=== PATIENT | male | born 1980 | race Caucasian/White ===

== ENCOUNTER 2017-08-02 19:29 | Emergency (ER) | payer BC ==
[2017-08-02] MEDS ORDERED: DOXYCYCLINE HYCLATE 100 MG CAPSULE PO ONE (19:50)
[2017-08-02] MEDS ORDERED: PREDNISONE 20 MG TAB PO ONE (19:50)
--- NOTE | 2017-08-02 19:58 | Emergency Department Record ---
History of Present Illness - General Chief complaint: Rash Stated complaint: RASH Source: Patient, Family Mode of Arrival: Ambulatory Limitations: No limitations - History of Present Illness Initial comments: 37 yo male presents with an itchy rash that started on the left hand. The rash started last Friday. The only symptoms he has had is itching. NO fevers, headache, sore throat, nausea, vomiting or any other symptoms. The rash has spread to the PATRICE and the RUE. No pain. He is returning from a vacation in [place]. No bites that were known to have occurred. No ticks that he saw. No swollen glands. The rash remains on the arms and across the upper back only. He does not feel ill at all. His main concerns are the itching and the left hand is a bit swollen. MD complaint: Rash -: Days(s) (6) Location: LUE, RUE Quality: Other (Itches) Consistency: Constant Improves with: None Worsens with: None Context: Other (Travel to [place]) Associated symptoms: Denies other symptoms Treatments Prior to Arrival: None - Related Data Home Medications Medication Instructions Recorded Confirmed Last Taken Lansoprazole [Prevacid] 30 mg PO BID 08/02/17 08/02/17 Unknown Venlafaxine HCl [Effexor] 75 mg PO DAILY 08/02/17 08/02/17 Unknown Previous Rx's Medication Instructions Recorded Doxycycline Hyclate [Doxycycline] 100 mg PO BID #14 cap 08/02/17 Prednisone [Prednisone 20Mg] 20 mg PO BID #14 tab 08/02/17 Allergies Allergy/AdvReac Type Severity Reaction Status Date / Time No Known Drug Allergies Allergy Verified 08/02/17 19:55 Review of Systems Constitutional: Denies: Chills, Fever, Malaise, Night sweats, Weakness Eyes: Denies: Eye discharge, Eye pain, Photophobia, Vision change ENT: Denies: Congestion, Ear pain, Epistaxis, Throat pain Respiratory: Denies: Dyspnea, Hemoptysis, Stridor, Wheezes Cardiovascular: Denies: Chest pain, Edema, Palpitations, Syncope Endocrine: Denies: Fatigue, Polydipsia, Polyuria Gastrointestinal: Denies: Abdominal pain, Diarrhea, Hematemesis, Hematochezia, Melena, Nausea, Vomiting Genitourinary: Denies: Dysuria Musculoskeletal: Reports: Joint swelling (left hand). Denies: Arthralgia, Back pain, Myalgia, Neck pain Skin: Reports: As per HPI, Change in color, Rash Neurological: Denies: Confusion, Headache, Numbness, Tingling, Tremors, Weakness Psychiatric: Denies: Anxiety Hematological/Lymphatic: Denies: Anemia, Blood Clots, Easy bleeding, Easy bruising, Swollen glands Physical Exam - General General Appearance: Alert, Oriented x3, Cooperative, No acute distress Limitations: No limitations - Head Head exam: Atraumatic, Normocephalic, Normal inspection Head exam detail: Other. negative: Abrasion, Contusion, Hematoma, Laceration - Eye Eye exam: Normal appearance, PERRL, EOMI. negative: Conjunctival injection, Periorbital swelling, Scleral icterus - ENT ENT exam: Mucous membranes moist, Normal orophraynx, Other (NO oral lesions) Ear exam: Normal external inspection Nasal Exam: Normal inspection Mouth exam: Normal external inspection Teeth exam: Normal inspection Throat exam: Normal inspection. negative: Tonsillar erythema, Tonsillomegaly, Tonsillar exudate, R peritonsillar mass, L peritonsillar mass - Neck Neck exam: Normal inspection, Full ROM. negative: Lymphadenopathy, Tenderness - Respiratory Respiratory exam: Normal lung sounds bilaterally. negative: Respiratory distress - Cardiovascular Cardiovascular Exam: Regular rate, Normal rhythm, Normal heart sounds - GI/Abdominal GI/Abdominal exam: Soft. negative: Tenderness - Rectal Rectal exam: Deferred - exam: Deferred - Extremities Extremities exam: Full ROM, Normal capillary refill, Other (The distribution of the rash is on both upper extremities from the hands, uuper arms, across the chest). negative: Normal inspection Image of Full Body: 1 - mild dorsal hand swelling, soft, not warm - Back Back exam: Denies: CVA tenderness (R), CVA tenderness (L), Full ROM - Neurological Neurological exam: Alert, Oriented X3. negative: Altered - Psychiatric Psychiatric exam: Normal affect, Normal mood - Skin Skin exam: Dry, Erythema, Intact (No weeping), Rash. negative: Cyanosis, Diaphoretic, Mottled, Normal color, Vesicles, Warm Type of lesion: negative: Abscess Distribution of rash: Back, RUE, LUE Description of rash: Other (The rash consists of papular lesions about 5mm to 10mm with 2-4 mm of light encircling faint erythema, some have a non blanching bruise appearance, no weeping, non confluent, no vesicles) Course Vital Signs 08/02/17 19:40 Temperature 98.3 F Pulse Rate [ 105 H Pulse Ox Probe] Respiratory 20 Rate Blood Pressure 131/84 [Left Arm] Pulse Ox 98 - Reevaluation(s) Reevaluation #1: The patient is well appearing. He does appear ill and has NOT been ill. His only symptoms is itching. He does not have any of the symptoms of an acute infectious process with NO headache, nausea, diarrhea, swollen glands, headache or fever. I did recommend treatment and swell as labs at this point in time. 08/02/17 20:24 08/02/17 20:41 The labs were reviewed The CBC was in the normal range without acute changes The Glucose was 147 non fasting The CRP was mildly elevated at 2.0 The lyme and rickettsial studies are send outs I explained that the origin of the rash is not completely clear. He is not sick or ill. His only symptom is itching. I recommended a course of Doxycycline until the lyme and rickettsial labs return. I explained that he must go to the hospital immediately if any symptoms occur to suggest infection or any systemic symptoms. He is to call his PCP Friday to be seen. He may need dermatology follow up if not improving. 08/02/17 21:53 Medical Decision Making - Lab Data Result diagrams: 08/02/17 20:14 08/02/17 20:14 Disposition Disposition: Discharge Clinical Impression: Rash Disposition: Home, Self-Care Condition: (1) Good Instructions: Acute Rash (ED) Additional Instructions: Call your doctor to be seen Friday Return or immediately be seen if you have any fever, headache, nausea, vomiting , diarrhea or signs of feeling ill Take the doxycycline twice daily as well as the Prednisone You may need see a medical psychotherapist in follow up as well. Prescriptions: Doxycycline Hyclate [Doxycycline] 100 mg PO BID #14 cap Prednisone [Prednisone 20Mg] 20 mg PO BID #14 tab Forms: Patient Portal Access Time of Disposition: 20:45 Quality - Quality Measures Quality Measures: N/A - Blood Pressure Screening Does Patient Have Any of the Following: No Blood Pressure Classification: Normal BP Reading Systolic Measurement: 115 Diastolic Measurement: 75 Screening for High Blood Pressure: < Normal BP, F/U Not Required > [G8783] Pre-Hypertensive Follow-up Interventions: Referral to alternative/primary care provider.
[2017-08-02 20:20] LABS: BASO % 0.3 % (0-6); EOS % 4.9 % (0-6); GRAN % 70.4 % (47-80); HEMATOCRIT 47.6 % (42.0-52.0); HEMOGLOBIN 16.5 gm/dl (14.0-18.0); LYMPH % 16.3 % (16-45); MEAN CELL VOLUME 85.6 fl (81-97); MEAN CORPUSCULAR HEMOGLOBIN 29.7 pg (27-33); MEAN CORPUSCULAR HGB CONC 34.7 g/dl (32-36); MEAN PLATELET VOLUME 9.6 fl (7.4-10.4); MONO % 8.1 % (0-9); PLATELET COUNT 236 K/uL (130-400); RED BLOOD COUNT 5.56 M/uL (4.40-5.70); RED CELL DISTRIBUTION WIDTH 12.8 % (11.5-14.5); WHITE BLOOD COUNT W/O DIFF 9.8 K/uL (4.2-12.2)
[2017-08-02 20:38] LABS: BLOOD UREA NITROGEN 14 mg/dL (6-20); CREATININE 0.8 mg/dL (0.7-1.2); EST GLOMERULAR FILTRATION RATE > 60 mL/min; GLUCOSE,RANDOM 147 mg/dL (74-109)
== END 2017-08-02 21:00 | disposition home or self-care (01) ==
LOC: ER 19:29
DX: R21 Rash and other nonspecific skin eruption (principal); L29.9 Pruritus, unspecified
CPT/HCPCS: 99283 ×2; 85025; 86140; 80048; J7512